=== PATIENT | female | born 1955 | race Caucasian/White ===

== ENCOUNTER 2016-10-23 19:56 | Emergency (ER) | payer MEDICAID ==
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
--- NOTE | 2016-10-24 07:53 | CT ---
DATE OF SERVICE: 10/23/16 CLINICAL DATA: fall, hit head UNENHANCED BRAIN CT: Multislice acquisition through the brain without IV contrast was performed. There is mild diffuse cerebral atrophy. No masses or mass effect. No intracranial hemorrhage. No evidence of acute or subacute infarct. No osseous abnormalities. There is minimal mucosal thickening in the ethmoid sinuses consistent with chronic sinusitis. IMPRESSION: No acute intracranial abnormalities. [id number] [facility]
== END 2016-10-23 23:30 ==
LOC: LB.ED 19:56
DX: S09.90XA Unspecified injury of head, initial encounter (principal); W19.XXXA Unspecified fall, initial encounter; F10.129 Alcohol abuse with intoxication, unspecified; F91.9 Conduct disorder, unspecified; Z63.4 Disappearance and death of family member
CPT/HCPCS: 36415; 70450; 80048; 84450; 84460; 84484; 85025; 99285; A0425; A0429; G0480; 99284

== ENCOUNTER 2017-06-21 16:28 | Emergency (ER) | payer MEDICAID ==
[2017-06-21] MEDS ORDERED: LORazepam 2 MG/ML SDV IVPUSH ONE ×2 (17:01→19:07)
--- NOTE | 2017-06-21 17:06 | EDM.PDOC ---
ED HPI GENERAL MEDICAL PROBLEM - General Chief Complaint: General Stated Complaint: Alcohol Withdrawal Time Seen by Provider: 06/21/17 16:45 Source of Information: Reports: Patient History Limitations: Reports: No Limitations - History of Present Illness INITIAL COMMENTS - FREE TEXT/NARRATIVE: According to patient she claims that she has been drinking 1/2 bottle of Vodka everyday. Today she did not have any Vodka to drink. She feels anxious and not well. She claims she has been shaky and hence came into emergency room. No nausea, vomiting or abdominal pain. No fever or chills. She claims she is tired of drinking now and wants to quit and wants to go to detox center and come home clean this time. I did call [facility] and discuss patient with triage nurse. Pt has been considered for inpatient admission under Alma Rosa Iverson NP at [facility]. Pt has not family member that can take her down and hence [facility] ambulance was arranged for transfer.Pt is hemodynamically stable at the time of transfer. Onset: Today Onset Date: 06/21/17 Onset Time: 12:00 Severity: Mild Improves with: Reports: None Worsens with: Reports: None Associated Symptoms: Reports: Nausea/Vomiting. Denies: Confusion, Chest Pain, Cough, Diaphoresis, Fever/Chills, Headaches, Malaise, Rash, Seizure, Shortness of Breath, Syncope, Weakness - Related Data Allergies Allergy/AdvReac Type Severity Reaction Status Date / Time No Known Allergies Allergy Verified 10/23/16 20:10 Home Meds: Home Meds NK [No Known Home Meds] 10/23/16 [History] Past Medical History Psychiatric History: Reports: Other (See Below) Other Psychiatric History: Per family patient is a "binge drinker " unknown how often she drinks but has been drinking for the last three days and had a traveller size bottle of vodka today". - Past Surgical History Musculoskeletal Surgical History: Reports: Other (See Below) Other Musculoskeletal Surgeries/Procedures:: Hip fracture 2-3 years ago left hip per pt uses cane at home Social & Family History - Family History Family Medical History: Noncontributory Respiratory: Reports: None - Tobacco Use Smoking Status *Q: Current Every Day Smoker Years of Tobacco use: 50 Packs/Tins Daily: 1 Used Tobacco, but Quit: No Second Hand Smoke Exposure: No - Caffeine Use Caffeine Use: Reports: Coffee, Soda Other Caffeine Use: 2- 3 cups a day - Alcohol Use Days Per Week of Alcohol Use: 4 Number of Drinks Per Day: 4 Total Drinks Per Week: 16 - Recreational Drug Use Recreational Drug Use: No ED ROS GENERAL - Review of Systems Review Of Systems: See Below Constitutional: Denies: Fever, Chills HEENT: Denies: Nose Pain, Sinus Problem, Throat Pain, Throat Swelling Respiratory: Denies: Shortness of Breath, Wheezing, Cough, Sputum Cardiovascular: Denies: Chest Pain, Lightheadedness Endocrine: Denies: Fatigue, High Glucose GI/Abdominal: Reports: Nausea, Vomiting. Denies: Abdominal Pain, Bloody Stool, Constipation, Diarrhea, Hematemesis, Hematochezia : Denies: Urgency, Urinary Retention Musculoskeletal: Denies: Joint Pain, Joint Swelling Skin: Denies: Pruritis, Rash, Erythema Neurological: Reports: Tremors. Denies: Confusion, Dizziness, Headache, Numbness, Tingling, Weakness ED EXAM, GENERAL - Physical Exam Exam: See Below Exam Limited By: No Limitations General Appearance: Alert, WD/WN, No Apparent Distress, Cachetic, Other (poor general hygiene and thin built) Eye Exam: Bilateral Eye: EOMI, PERRL Ears: Normal External Exam, Normal Canal, Hearing Grossly Normal, Normal TMs Ear Exam: Bilateral Ear: Auricle Normal, Canal Normal, TM normal Nose: Normal Inspection, Normal Mucosa, No Blood Throat/Mouth: Normal Inspection, Normal Lips, Normal Teeth, Normal Gums, Normal Oropharynx, Normal Voice, No Airway Compromise Head: Atraumatic, Normocephalic Neck: Normal Inspection, Supple, Non-Tender, Full Range of Motion Respiratory/Chest: No Respiratory Distress, Lungs Clear, Normal Breath Sounds, No Accessory Muscle Use, Chest Non-Tender Cardiovascular: Normal Peripheral Pulses, Regular Rate, Rhythm, No Edema, No Gallop, No JVD, No Murmur, No Rub Peripheral Pulses: 2+: Brachial (L), Brachial (R), Radial (L), Radial (R) GI/Abdominal: Normal Bowel Sounds, Soft, Non-Tender, No Organomegaly, No Distention, No Abnormal Bruit, No Mass Back Exam: Normal Inspection, Full Range of Motion, NT Extremities: Normal Inspection, Normal Range of Motion, Non-Tender, Normal Capillary Refill, No Pedal Edema Neurological: Alert, Oriented, CN II-XII Intact, Normal Cognition, Normal Gait, Other (Has coarse tremor of the hands. No clonus seen or felt.) Skin Exam: Warm, Intact EKG INTERPRETATION EKG Date: 06/21/17 Rhythm: NSR [place]ison: Normal P-Wave: Present QRS: Normal ST-T: Normal QT: Normal EKG Interpretation Comments: Sinus tachycardia Course - Vital Signs Text/Narrative:: Pt apparently drank 3 Pints of Vodka last night.She has not had any alcohol today and she has been having withdrawal tremors.Pt did receive Ativan 1 mg after Iv was placed. She claims she feels better. Pt's EKG is in sinus tachycardia. CBC, CMP and ETOH level drawn.CBC and CMP normal. Her ETOH level is 97. Pt reassured. Pt does not want to go home. she claims she does not want to go back home. She wants to go into inpatient detox program and needs help with quitting her alcoholism. she claims she lives alone and lot of time drinks from boredom. - Orders/Labs/Meds Orders: Active Orders 24 hr Category Date Time Status EKG Documentation Completion [RC] ASDIRECTED Care 06/21/17 17:21 Active Labs: Laboratory Tests 06/21/17 06/21/17 06/21/17 Range/Units 17:15 17:15 17:15 WBC 9.7 (4.0-11.0) K/uL RBC 4.02 (3.80-5.80) M/uL Hgb 11.8 (11.5-16.5) g/dL Hct 35.9 L (37.0-47.0) % MCV 89 (76-96) fL MCH 29.4 (27.0-32.0) pg MCHC 32.9 (31.0-35.0) g/dL RDW 14.7 (11.0-16.0) % Plt Count 370 (150-500) K/uL MPV 9.3 (6.0-10.0) fL Neut % (Auto) 68.8 (45.0-70.0) % Lymph % (Auto) 20.1 (20.0-40.0) % [place] % (Auto) 10.1 H (3.0-10.0) % Eos % (Auto) 0.6 L (1.0-5.0) % Baso % (Auto) 0.4 (0.0-0.5) % Neut # (Auto) 6.68 (2.00-7.50) K/uL Lymph # (Auto) 1.95 (1.50-4.00) K/uL [place] # (Auto) 0.98 H (0.20-0.80) K/uL Eos # (Auto) 0.06 (0.04-0.40) K/uL Baso # (Auto) 0.04 (0.02-0.10) K/uL Sodium 135 L (136-145) mmol/L Potassium 4.2 (3.5-5.1) mmol/L Chloride 96 L (98-107) mmol/L Carbon Dioxide 24.3 (21.0-32.0) mmol/L Anion Gap 18.9 H (5.0-15.0) mmol/L BUN 11 D (8-26) mg/dL Creatinine 0.56 (0.55-1.02) mg/dL Est Cr Clr Drug Dosing TNP Estimated GFR (MDRD) > 60 (>60) MLS/MIN BUN/Creatinine Ratio 19.6 (6-25) Glucose 109 H (74-100) mg/dL Calcium 7.9 L (8.5-10.1) mg/dL Phosphorus 2.7 (2.5-4.9) mg/dL Magnesium 0.9 L (1.8-2.4) mg/dL Total Bilirubin 0.4 (0.0-1.0) mg/dL AST 27 (15-37) U/L ALT 18 (12-78) U/L Alkaline Phosphatase 162 H (46-116) U/L Total Protein 6.0 L (6.4-8.2) g/dL Albumin 2.3 L (3.4-5.0) g/dL Globulin 3.7 (2.2-4.2) g/dL Albumin/Globulin Ratio 0.6 L (0.8-2.0) Ethyl Alcohol 97.0 H (0.0-0.0) mg/dL Meds: Medications Discontinued Medications Generic Name Dose Route Start Last Admin Trade Name Freq PRN Reason Stop Dose Admin Lorazepam 1 mg 06/21/17 17:01 Ativan IVPUSH 06/21/17 17:02 ONETIME ONE Departure - Departure Time of Disposition: 19:55 Disposition: DC/Tfer to Psych Hosp/Unit 65 Condition: Fair Clinical Impression: Chronic alcoholism - Discharge Information Referrals: PCP,None [Primary Care Provider] - Forms: ED Department Discharge - Problem List & Annotations (1) Chronic alcoholism SNOMED Code(s): 3974440 Code(s): F10.20 - ALCOHOL DEPENDENCE, UNCOMPLICATED Status: Acute Current Visit: No - Problem List Review Problem List Initiated/Reviewed/Updated: Yes - My Orders Last 24 Hours: My Active Orders 06/21/17 17:21 EKG Documentation Completion [RC] ASDIRECTED - Assessment/Plan Admission H&P: Please use this note as an admission H&P Last 24 Hours: My Active Orders 06/21/17 17:21 EKG Documentation Completion [RC] ASDIRECTED Assessment:: Chronic alcoholism Plan: According to patient she claims that she has been drinking 1/2 bottle of Vodka everyday. Today she did not have any Vodka to drink. She feels anxious and not well. She claims she has been shaky and hence came into emergency room. No nausea, vomiting or abdominal pain. No fever or chills. She claims she is tired of drinking now and wants to quit and wants to go to detox center and come home clean this time. I did call [facility] and discuss patient with triage nurse. Pt has been considered for inpatient admission under Alma Rosa Iverson NP at [facility]. Pt has not family member that can take her down and hence [facility] ambulance was arranged for transfer.Pt is hemodynamically stable at the time of transfer.
== END 2017-06-21 20:20 ==
LOC: LB.ED 16:28
DX: F10.239 Alcohol dependence with withdrawal, unspecified (principal); F17.210 Nicotine dependence, cigarettes, uncomplicated
CPT/HCPCS: 36415; 80053; 83735; 84100; 85025; 93005; 96374; 96376; 99285; A0425; A0429; G0480

== ENCOUNTER 2017-10-01 16:55 | Observation (INO) | payer MEDICAID ==
[2017-10-01] MEDS ORDERED: MVI, Adult with Vitamin K 10 ML, Thiamine 100 MG, Folic Acid 1 MG, Magnesium Sulfate 3 ... IV SCH ×5 (17:30)
[2017-10-01] MEDS ORDERED: FOLIC ACID IV ONE ×5 (19:30)
[2017-10-01] MEDS ORDERED: [UNRECOGNIZED DRUG - OTHER] IV ONE ×5 (19:30)
[2017-10-01] MEDS ORDERED: MVI IV ONE ×5 (19:30)
[2017-10-01] MEDS ORDERED: THIAMINE IV ONE ×5 (19:30)
[2017-10-01] MEDS ORDERED: VITAMIN K IV ONE ×5 (19:30)
[2017-10-01] MEDS ORDERED: LORazepam 2 MG/ML SDV IVPUSH PRN (19:30)
[2017-10-01] MEDS ORDERED: Sodium Chloride 0.9% 1,000 ML IV SCH (19:45)
[2017-10-01] MEDS ORDERED: LORazepam 2 MG/ML SDV IVPUSH ONE (20:00)
[2017-10-01] MEDS ORDERED: LORazepam 2 MG/ML SDV ONE (20:23)
[2017-10-02] MEDS: Nicotine 14 MG/24 Hr Patch TRDERM SCH ×2 (00:04→09:59)
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
--- NOTE | 2017-10-02 01:47 | ADMIT ---
DATE OF SERVICE: 10/01/2017 HISTORY OF PRESENT ILLNESS: This is a 62-year-old lady I saw earlier in the emergency room for alcohol intoxication. Her other lab results were normal or negative. The patient left AMA after being in the emergency room for about 1 hour. She still had an IV site that was intact. Nursing staff called the painter hand who went to check on the patient and to remove the IV site, and they found her at home. She had walked home using a walker, but she was somewhat drowsy, and they thought she should come in for further evaluation. The patient is taken directly to the hospital floor. She will be admitted for observation overnight. When I saw the patient at this point, she was sleeping quietly, respirations were unlabored , and her son is here with her. TREATMENT PLAN: We will keep the patient here overnight. She will be rehydrated. We will give her a banana bag as well, and we will also use a Habitrol nicotine patch if needed. The patient also may need some Ativan and this will be done per protocol. Again, her other lab results were all negative or normal. There are no other health issues with the patient other than some malnourishment and poor hygiene. CRS/MODL /[id number] SABINA
--- NOTE | 2017-10-02 09:56 | CR ---
AP CHEST, 10/01/17 The heart size is normal. The aorta is ectatic The left costophrenic angle is cut off. The visualized lungs are clear. No pneumothorax. No pleural effusions. [id number] [facility]
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
[2017-10-02] MEDS ORDERED: LORazepam 1 MG Tab ONE (14:16)
[2017-10-02] MEDS ORDERED: LORazepam 1 MG Tab PO PRN (14:21)
--- NOTE | 2017-10-02 17:06 | CR ---
DATE OF SERVICE: 10/02/17 CLINICAL DATA: right hip pain RIGHT HIP: No priors. There is diffuse osteopenia. There are mild osteoarthritic changes of the right hip joint. There are degenerative changes involving the right SI joint. No acute abnormalities. [id number] [facility]
[2017-10-03] MEDS: Nicotine 14 MG/24 Hr Patch TRDERM SCH (09:28)
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
== END 2017-10-03 11:35 | disposition home or self-care (01) ==
LOC: LB.ED 16:55 → LB.MS 19:25
PROVIDERS: ADMIT Physician Assistant; ATTEND Physician Assistant
DX: F10.120 Alcohol abuse with intoxication, uncomplicated (principal); R46.89 Other symptoms and signs involving appearance and behavior; Z53.21 Procedure and treatment not carried out due to patient leaving prior to being seen by health care provider; Y90.8 Blood alcohol level of 240 mg/100 ml or more
CPT/HCPCS: 36415; 71045; 73502; 80053; 80307; 84443; 85025; 99285; A0425; A0429; A9270; G0480; J2060; J3411; J3475; J7030; J3490

== ENCOUNTER 2017-10-11 18:27 | Inpatient (IN) | payer SELFPAY ==
[2017-10-11] MEDS ORDERED: Potassium Chloride 20 MEQ Tab.ER PO ONE (19:45)
[2017-10-11] MEDS ORDERED: Thiamine 100 MG in Sodium Chloride 0.9% 100 ML IV ONE (20:24)
[2017-10-11] MEDS ORDERED: NS + KCl 20mEq/L 1,000 ML IV SCH (20:30)
[2017-10-11] MEDS: LORazepam 2 MG/ML SDV IVPUSH PRN (20:45)
[2017-10-11] MEDS ORDERED: cefTRIAXone 1 GM in Sodium Chloride 0.9% 50 ML IV SCH (21:00)
[2017-10-12] MEDS: LORazepam 2 MG/ML SDV IVPUSH PRN (00:50)
[2017-10-12] MEDS: Nicotine 21 MG/24 Hr Patch TRDERM SCH ×2 (04:40→07:22)
[2017-10-12] MEDS: Potassium Chloride 20 MEQ Tab.ER PO SCH (07:40)
--- NOTE | 2017-10-12 11:55 | PCM.PN ---
- General Info Date of Service: 10/12/17 Admission Dx/Problem (Free Text): alcohol intoxication hypokalemia UTI Functional Status: Reports: Tolerating Diet - Patient Data Vitals - Most Recent: Last Vital Signs Temp 98.1 F 10/12/17 10:45 Pulse 93 10/12/17 10:45 Resp 18 10/12/17 10:45 BP 134/79 10/12/17 10:45 Pulse Ox 100 10/12/17 10:45 Weight - Most Recent: 98 lb 6.4 oz I&O - Last 24 Hours: Intake & Output 10/11/17 10/12/17 10/12/17 22:59 06:59 14:59 Intake Total 950 Balance 950 Lab Results Last 24 Hours: Laboratory Results - last 24 hr 10/11/17 10/11/17 10/11/17 Range/Units 18:55 18:55 18:55 WBC 12.0 H (4.0-11.0) K/uL RBC 3.52 L (3.80-5.80) M/uL Hgb 10.7 L (11.5-16.5) g/dL Hct 31.5 L (37.0-47.0) % MCV 90 (76-96) fL MCH 30.4 (27.0-32.0) pg MCHC 34.0 (31.0-35.0) g/dL RDW 13.9 (11.0-16.0) % Plt Count 330 D (150-500) K/uL MPV 9.8 (6.0-10.0) fL Neut % (Auto) 61.2 (45.0-70.0) % Lymph % (Auto) 31.1 (20.0-40.0) % [place] % (Auto) 4.7 (3.0-10.0) % Eos % (Auto) 2.5 (1.0-5.0) % Baso % (Auto) 0.5 (0.0-0.5) % Neut # (Auto) 7.35 (2.00-7.50) K/uL Lymph # (Auto) 3.73 (1.50-4.00) K/uL [place] # (Auto) 0.56 (0.20-0.80) K/uL Eos # (Auto) 0.30 (0.04-0.40) K/uL Baso # (Auto) 0.06 (0.02-0.10) K/uL PT 9.9 (9.0-11.5) sec INR 1.0 (1.0-3.5) Sodium 135 L (136-145) mmol/L Potassium 2.7 L* D (3.5-5.1) mmol/L Chloride 97 L (98-107) mmol/L Carbon Dioxide 26.3 (21.0-32.0) mmol/L Anion Gap 14.4 (5.0-15.0) mmol/L BUN 7 L (8-26) mg/dL Creatinine 0.53 L (0.55-1.02) mg/dL Est Cr Clr Drug Dosing TNP Estimated GFR (MDRD) > 60 (>60) MLS/MIN BUN/Creatinine Ratio 13.2 (6-25) Glucose 96 (74-100) mg/dL Calcium 8.0 L (8.5-10.1) mg/dL Total Bilirubin 0.4 (0.0-1.0) mg/dL AST 22 (15-37) U/L ALT 24 (12-78) U/L Alkaline Phosphatase 173 H (46-116) U/L Total Protein 6.2 L (6.4-8.2) g/dL Albumin 2.9 L (3.4-5.0) g/dL Globulin 3.3 (2.2-4.2) g/dL Albumin/Globulin Ratio 0.9 (0.8-2.0) Urine Color Urine Appearance (CLEAR) Urine pH (5.0-8.0) Ur Specific [place] (1.003-1.030) Urine Protein (NEGATIVE) mg/dL Urine Glucose (UA) (NEGATIVE) mg/dL Urine Ketones (NEGATIVE) mg/dL Urine Occult Blood (NEGATIVE) Urine Nitrite (NEGATIVE) Urine Bilirubin (NEGATIVE) Urine Urobilinogen (0.2-1.0) E.U./dL Ur Leukocyte Esterase (NEGATIVE) Urine RBC /HPF Urine WBC /HPF Urine WBC Clumps /HPF Ur Squamous Epith Cells /HPF Urine Bacteria /HPF Urine Opiates Screen (NEGATIVE) Ur Oxycodone Screen (NEGATIVE) Ur Barbiturates Screen (NEGATIVE) Ur Amphetamine Screen (NEGATIVE) U Methamphetamines Scrn (NEGATIVE) U Benzodiazepines Scrn (NEGATIVE) U Cocaine Metab Screen (NEGATIVE) U Marijuana (THC) Screen (NEGATIVE) Ethyl Alcohol 356.0 H* (0.0-0.0) mg/dL 10/11/17 10/11/17 10/12/17 Range/Units 19:07 19:07 08:00 WBC (4.0-11.0) K/uL RBC (3.80-5.80) M/uL Hgb (11.5-16.5) g/dL Hct (37.0-47.0) % MCV (76-96) fL MCH (27.0-32.0) pg MCHC (31.0-35.0) g/dL RDW (11.0-16.0) % Plt Count (150-500) K/uL MPV (6.0-10.0) fL Neut % (Auto) (45.0-70.0) % Lymph % (Auto) (20.0-40.0) % [place] % (Auto) (3.0-10.0) % Eos % (Auto) (1.0-5.0) % Baso % (Auto) (0.0-0.5) % Neut # (Auto) (2.00-7.50) K/uL Lymph # (Auto) (1.50-4.00) K/uL [place] # (Auto) (0.20-0.80) K/uL Eos # (Auto) (0.04-0.40) K/uL Baso # (Auto) (0.02-0.10) K/uL PT (9.0-11.5) sec INR (1.0-3.5) Sodium 139 (136-145) mmol/L Potassium 4.2 D (3.5-5.1) mmol/L Chloride 103 (98-107) mmol/L Carbon Dioxide 29.0 (21.0-32.0) mmol/L Anion Gap 11.2 (5.0-15.0) mmol/L BUN 7 L (8-26) mg/dL Creatinine 0.53 L (0.55-1.02) mg/dL Est Cr Clr Drug Dosing TNP Estimated GFR (MDRD) > 60 (>60) MLS/MIN BUN/Creatinine Ratio 13.2 (6-25) Glucose 104 H (74-100) mg/dL Calcium 8.2 L (8.5-10.1) mg/dL Total Bilirubin (0.0-1.0) mg/dL AST (15-37) U/L ALT (12-78) U/L Alkaline Phosphatase (46-116) U/L Total Protein (6.4-8.2) g/dL Albumin (3.4-5.0) g/dL Globulin (2.2-4.2) g/dL Albumin/Globulin Ratio (0.8-2.0) Urine Color Yellow Urine Appearance Slightly cloudy (CLEAR) Urine pH 6.0 (5.0-8.0) Ur Specific [place] 1.015 (1.003-1.030) Urine Protein Negative (NEGATIVE) mg/dL Urine Glucose (UA) Negative (NEGATIVE) mg/dL Urine Ketones Negative (NEGATIVE) mg/dL Urine Occult Blood Trace-lysed H (NEGATIVE) Urine Nitrite Positive H (NEGATIVE) Urine Bilirubin Negative (NEGATIVE) Urine Urobilinogen 0.2 (0.2-1.0) E.U./dL Ur Leukocyte Esterase Trace H (NEGATIVE) Urine RBC 5-10 H /HPF Urine WBC 20-30 H /HPF Urine WBC Clumps Few /HPF Ur Squamous Epith Cells Few /HPF Urine Bacteria Many H /HPF Urine Opiates Screen Negative (NEGATIVE) Ur Oxycodone Screen Negative (NEGATIVE) Ur Barbiturates Screen Negative (NEGATIVE) Ur Amphetamine Screen Negative (NEGATIVE) U Methamphetamines Scrn Negative (NEGATIVE) U Benzodiazepines Scrn Negative (NEGATIVE) U Cocaine Metab Screen Negative (NEGATIVE) U Marijuana (THC) Screen Negative (NEGATIVE) Ethyl Alcohol 0.0 (0.0-0.0) mg/dL Med Orders - Current: Current Medications Ceftriaxone Sodium 1 gm/ (Sodium Chloride) 50 mls @ 100 mls/hr IV Q24H [facility] Last Admin: 10/11/17 20:20 Dose: 100 mls/hr Potassium Chloride/Sodium Chloride (Normal Saline With 20 Meq Kcl) 1,000 mls @ 200 mls/hr IV ASDIRECTED [facility] Last Admin: 10/11/17 20:00 Dose: 200 mls/hr Lorazepam (Ativan) 1 mg IVPUSH Q4H PRN PRN Reason: Agitation Last Admin: 10/12/17 00:50 Dose: 1 mg Nicotine (Habitrol) 21 mg TRDERM DAILY [facility] Last Admin: 10/12/17 07:22 Dose: Not Given Potassium Chloride (Klor-Con M20) 20 meq PO DAILY [facility] Last Admin: 10/12/17 07:40 Dose: 20 meq Thiamine HCl (Vitamin B-1) 100 mg PO BEDTIME [facility] Discontinued Medications Thiamine HCl 100 mg/ Sodium (Chloride) 101 mls @ 202 mls/hr IV ONETIME ONE Stop: 10/11/17 20:25 Last Admin: 10/11/17 20:30 Dose: 202 mls/hr Potassium Chloride (Klor-Con M20) 40 meq PO ONETIME ONE Stop: 10/11/17 19:46 Last Admin: 10/11/17 19:52 Dose: 40 meq - Exam General: Alert, Oriented Neck: Supple Lungs: Clear to Auscultation, Normal Respiratory Effort Cardiovascular: Regular Rate, Regular Rhythm - Problem List Review Problem List Initiated/Reviewed/Updated: Yes - My Orders Last 24 Hours: My Active Orders 10/11/17 19:07 DRUG SCREEN, URINE [URCHEM] Stat UA W/MICROSCOPIC [URIN] Stat 10/11/17 20:05 Patient Status [ADT] Routine Oxygen Therapy [RC] PRN Up With Assistance [RC] ASDIRECTED Vital Signs [RC] Q4H Resuscitation Status Routine 10/11/17 20:15 Nicotine [Habitrol] 21 mg TRDERM DAILY 10/11/17 20:17 LORazepam [Ativan] 1 mg IVPUSH Q4H PRN 10/11/17 20:30 NS + KCl 20mEq/L [Normal Saline with 20 mEq KCl] 1,000 ml IV ASDIRECTED 10/11/17 21:00 cefTRIAXone [Rocephin] 1 gm Sodium Chloride 0.9% [Normal Saline] 50 ml IV Q24H 10/12/17 07:59 CULTURE MRSA SURVEY [RM] Routine 10/12/17 08:00 Potassium Chloride [Klor-Con M20] 20 meq PO DAILY 10/12/17 20:00 Thiamine [Vitamin B-1] 100 mg PO BEDTIME 10/12/17 Breakfast Regular Diet [DIET] 10/13/17 05:11 BASIC METABOLIC PANEL,BMP [CHEM] AM Blood Alcohol [ETHANOL BLOOD MEDICAL] [CHEM] AM 10/14/17 05:11 BASIC METABOLIC PANEL,BMP [CHEM] AM Blood Alcohol [ETHANOL BLOOD MEDICAL] [CHEM] AM - Assessment Assessment:: Alcohol level is down to zero. Pt' potassium is 4.2 now in the normal range. UTI has beed treated - Plan Plan:: Will attempt to find inpatient alcohol treatment as pt states that is her goal.
[2017-10-12] MEDS ORDERED: LORazepam 1 MG Tab ONE (14:23)
[2017-10-12] MEDS: LORazepam 1 MG Tab PO PRN ×2 (14:30→19:14)
[2017-10-12] MEDS ORDERED: Ondansetron 4 MG Tab.DIS PO PRN (18:08)
[2017-10-12] MEDS ORDERED: Thiamine 100 MG Tab PO SCH (20:00)
[2017-10-13] MEDS: LORazepam 1 MG Tab PO PRN (03:55)
[2017-10-13] MEDS: Potassium Chloride 20 MEQ Tab.ER PO SCH (07:58)
[2017-10-13] MEDS: Nicotine 21 MG/24 Hr Patch TRDERM SCH (07:58)
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
== END 2017-10-13 11:58 | disposition home or self-care (01) | DRG 641 ==
LOC: LB.ED 18:27 → LB.MS 20:00 → OBSVTOIN 20:05
PROVIDERS: ADMIT Family Medicine; ATTEND Family Medicine
DX: E87.6 Hypokalemia (principal); N39.0 Urinary tract infection, site not specified; F10.129 Alcohol abuse with intoxication, unspecified
CPT/HCPCS: 36415; 80048; 80053; 80307; 81001; 85025; 85610; 99284; A9270-GY; G0480; J0696; J2060; J3411; J3480; J7030; J7050

== ENCOUNTER 2017-10-13 19:12 | Emergency (ER) | payer SELFPAY ==
[2017-10-13] MEDS ORDERED: LORazepam 1 MG Tab ONE (19:30)
--- NOTE | 2017-10-14 01:26 | ER ---
HPI: A 62-year-old lady who comes in with her son with complaints of feeling nervous and jittery. She feels a little lightheaded at times. She just was discharged from the hospital today at noon. She was here as an inpatient for a couple of days for fatigue and hypokalemia as well as chronic alcoholism. The patient tells me that plans are being made so that she can go into a detox program. She has meetings coming up in a couple of days to determine this. She is worried that she may have a seizure. She states that she does have some history of seizures, but has not had one for at least 2 years. She is wondering about getting on Dilantin to help with the risk of seizures. The patient states she feels a little shaky at times, but she has not been nauseated. She has not been vomiting. She has not had any recent falls. OBJECTIVE: GENERAL APPEARANCE: The patient is awake and alert. She is in good hygiene tonight. She is pleasant and fairly talkative. VITAL SIGNS: Reviewed as listed. Physical exam, ears; TMs are dull, otherwise normal. Nares are patent. Oral mucous membranes moist. Tonsils not enlarged or injected. Pharynx not inflamed. The patient is missing multiple teeth. LUNGS: Clear. CARDIAC: Heart sounds distinct. S1, S2 present. Regular rate. No murmurs. ABDOMEN: Soft, nontender. Bowel sounds are present. SKIN: Warm and dry. DIAGNOSES: 1. Alcohol withdrawal. 2. Chronic alcoholism. 3. Hypokalemia. TREATMENT PLAN: I will give the patient Ativan tablets. I understand she has been on these before and it worked well for her in the past. We will try Ativan 1 mg. She can take one tablet every 6 hours as needed. We gave 3 tablets from the ER and a script for 12 more tablets. I advised the patient to use these regularly if she feels she needs them for the next couple of days and then she will be following up with her primary care provider and a certified social workers in health care. I advised the patient to consult with her primary care provider to see if Dilantin should be restarted. She has not been on it for a while and she has not had any recent seizure activity. The patient is agreeable with the treatment plan. Her son is here as well. He has no further questions. CRS/MODL /[id number] SABINA
== END 2017-10-13 19:35 | disposition home or self-care (01) ==
LOC: LB.ED 19:12
DX: F10.239 Alcohol dependence with withdrawal, unspecified (principal); E87.6 Hypokalemia
CPT/HCPCS: 99283; A9270-GY

== ENCOUNTER 2017-10-18 19:18 | Emergency (ER) | payer SELFPAY ==
--- NOTE | 2017-10-18 19:42 | EDM.PDOC ---
ED HPI GENERAL MEDICAL PROBLEM - General Chief Complaint: General Stated Complaint: ETOH intoxification family requesting Tx Time Seen by Provider: 10/18/17 19:35 Source of Information: Reports: Patient, Family History Limitations: Reports: Intoxication - History of Present Illness INITIAL COMMENTS - FREE TEXT/NARRATIVE: Patient is a 62 year old alcoholic female who has been in treatment before who has become intoxicated again. Her son called the police and the police stated that she needed to go to Detox and suggested she come to the ED to go to Detox. She is intoxicated but otherwise has no complaints. Onset: Gradual Onset Date: 10/16/17 Onset Time: 12:00 Duration: Day(s): (She has been drinking solidly for 3 days and has not eaten anything else.) Location: Reports: Generalized Quality: Reports: Same as Previous Episode Severity: Moderate Improves with: Reports: None Worsens with: Reports: None Context: Reports: Other (Alcoholic) Associated Symptoms: Reports: No Other Symptoms (She is obviously drunk.) - Related Data Allergies Allergy/AdvReac Type Severity Reaction Status Date / Time No Known Allergies Allergy Verified 10/13/17 21:52 Home Meds: Home Meds Potassium Chloride [K-Tab ER] 20 meq PO DAILY #30 tablet.er 10/13/17 [Rx] PARoxetine HCl [Paxil] 40 mg PO DAILY 10/18/17 [History] Past Medical History HEENT History: Reports: Hard of Hearing, Impaired Vision Genitourinary History: Reports: Urinary Incontinence [employer] History: Reports: Musculoskeletal History: Reports: Fracture, Other (See Below) Other Musculoskeletal History: Hip/Pelvic Fx in May per pt; ambulates with use of FWW Neurological History: Reports: Other (See Below) Other Neuro History: withdrawl seizures Psychiatric History: Reports: Addiction, Anxiety, Depression, Panic Attack, Other (See Below) Other Psychiatric History: ETOH abuse Hx. Has been seen in facility multiple times in past months for ETOH intoxication and withdrawals. Has been to detox numerous times as well recently. - Past Surgical History Musculoskeletal Surgical History: Reports: Other (See Below) Other Musculoskeletal Surgeries/Procedures:: Hip fracture 2-3 years ago left hip per pt uses cane at home Social & Family History - Family History Family Medical History: Noncontributory Respiratory: Reports: None - Caffeine Use Caffeine Use: Reports: Coffee, Soda Other Caffeine Use: 2- 3 cups a day ED ROS GENERAL - Review of Systems Review Of Systems: See Below Constitutional: Reports: Other (She is intoxicated.) HEENT: Reports: No Symptoms Respiratory: Reports: No Symptoms Cardiovascular: Reports: No Symptoms Endocrine: Reports: No Symptoms GI/Abdominal: Reports: No Symptoms : Reports: No Symptoms Musculoskeletal: Reports: No Symptoms Skin: Reports: No Symptoms Neurological: Reports: Other (Intoxicated) Psychiatric: Reports: Other (Intoxicated) Hematologic/Lymphatic: Reports: No Symptoms Immunologic: Reports: No Symptoms ED EXAM, GENERAL - Physical Exam Exam: See Below Exam Limited By: No Limitations General Appearance: Alert, WD/WN, No Apparent Distress Eye Exam: Bilateral Eye: EOMI, Normal Fundi, Normal Inspection, PERRL Ears: Normal External Exam, Normal Canal, Hearing Grossly Normal, Normal TMs Ear Exam: Bilateral Ear: Auricle Normal, Canal Normal, TM normal Nose: Normal Inspection, Normal Mucosa, No Blood Throat/Mouth: Normal Inspection, Normal Lips, Normal Teeth, Normal Gums, Normal Oropharynx, Normal Voice, No Airway Compromise Head: Atraumatic, Normocephalic Neck: Normal Inspection, Supple, Non-Tender, Full Range of Motion Respiratory/Chest: No Respiratory Distress, Lungs Clear, Normal Breath Sounds, No Accessory Muscle Use, Chest Non-Tender Cardiovascular: Normal Peripheral Pulses, Regular Rate, Rhythm, No Edema, No Gallop, No JVD, No Murmur, No Rub GI/Abdominal: Normal Bowel Sounds, Soft, Non-Tender, No Organomegaly, No Distention, No Abnormal Bruit, No Mass Back Exam: Normal Inspection, Full Range of Motion, NT Extremities: Normal Inspection, Normal Range of Motion, Non-Tender, Normal Capillary Refill, No Pedal Edema Neurological: Alert, Oriented, CN II-XII Intact, Normal Cognition, Normal Gait, Normal Reflexes, No Motor/Sensory Deficits Psychiatric: Normal Affect, Normal Mood Skin Exam: Warm, Dry, Intact, Normal Color, No Rash Lymphatic: No Adenopathy Course - Vital Signs Text/Narrative:: Uneventful ED course. She was given 1 liter of Normal Saline and her ETOH level came back low enough to be accepted to Detox. [facility] has accepted her in transfer and the [employer] ambulance will take her there. Last Recorded V/S: Last Vital Signs Temp 36.9 C 10/18/17 20:02 Pulse 94 10/18/17 20:02 Resp 16 10/18/17 20:02 BP 117/80 10/18/17 20:02 Pulse Ox 94 L 10/18/17 20:02 - Orders/Labs/Meds Orders: Active Orders 24 hr Category Date Time Status DRUG SCREEN, URINE [URCHEM] Stat Lab 10/18/17 20:43 Ordered Sodium Chloride 0.9% [Normal Saline] 1,000 ml Med 10/18/17 19:45 Active IV ASDIRECTED Sodium Chloride 0.9% [Saline Flush] Med 10/18/17 19:44 Active 10 ml FLUSH ASDIRECTED PRN Saline Lock Insert [OM.PC] Routine Oth 10/18/17 19:44 Ordered Medication Orders Sodium Chloride (Normal Saline) 1,000 mls @ 1,000 mls/hr IV ASDIRECTED MEAGHAN Last Admin: 10/18/17 19:54 Dose: 1,000 mls/hr Sodium Chloride (Saline Flush) 10 ml FLUSH ASDIRECTED PRN PRN Reason: Keep Vein Open Labs: Laboratory Tests 10/18/17 10/18/17 10/18/17 Range/Units 20:30 20:30 20:30 WBC 10.9 (4.0-11.0) K/uL RBC 3.63 L (3.80-5.80) M/uL Hgb 11.2 L (11.5-16.5) g/dL Hct 33.1 L (37.0-47.0) % MCV 91 (76-96) fL MCH 30.9 (27.0-32.0) pg MCHC 33.8 (31.0-35.0) g/dL RDW 14.3 (11.0-16.0) % Plt Count 390 (150-500) K/uL MPV 9.2 (6.0-10.0) fL Neut % (Auto) 57.5 (45.0-70.0) % Lymph % (Auto) 34.4 (20.0-40.0) % [place] % (Auto) 6.6 (3.0-10.0) % Eos % (Auto) 0.9 L (1.0-5.0) % Baso % (Auto) 0.6 H (0.0-0.5) % Neut # (Auto) 6.27 (2.00-7.50) K/uL Lymph # (Auto) 3.75 (1.50-4.00) K/uL [place] # (Auto) 0.72 (0.20-0.80) K/uL Eos # (Auto) 0.10 (0.04-0.40) K/uL Baso # (Auto) 0.06 (0.02-0.10) K/uL Sodium 135 L (136-145) mmol/L Potassium 3.8 (3.5-5.1) mmol/L Chloride 101 (98-107) mmol/L Carbon Dioxide 26.1 (21.0-32.0) mmol/L Anion Gap 11.7 (5.0-15.0) mmol/L BUN 7 L (8-26) mg/dL Creatinine 0.63 (0.55-1.02) mg/dL Est Cr Clr Drug Dosing TNP Estimated GFR (MDRD) > 60 (>60) MLS/MIN BUN/Creatinine Ratio 11.1 (6-25) Glucose 93 (74-100) mg/dL Calcium 8.2 L (8.5-10.1) mg/dL Total Bilirubin 0.2 D (0.0-1.0) mg/dL AST 25 (15-37) U/L ALT 20 (12-78) U/L Alkaline Phosphatase 192 H (46-116) U/L Total Protein 6.4 (6.4-8.2) g/dL Albumin 2.8 L (3.4-5.0) g/dL Globulin 3.6 (2.2-4.2) g/dL Albumin/Globulin Ratio 0.8 (0.8-2.0) TSH, Ultra Sensitive 3.234 (0.358-3.740) uIU/mL Urine Opiates Screen (NEGATIVE) Ur Oxycodone Screen (NEGATIVE) Ur Barbiturates Screen (NEGATIVE) Ur Amphetamine Screen (NEGATIVE) U Methamphetamines Scrn (NEGATIVE) U Benzodiazepines Scrn (NEGATIVE) U Cocaine Metab Screen (NEGATIVE) U Marijuana (THC) Screen (NEGATIVE) Ethyl Alcohol 336.0 H* (0.0-0.0) mg/dL 10/18/17 Range/Units 20:43 WBC (4.0-11.0) K/uL RBC (3.80-5.80) M/uL Hgb (11.5-16.5) g/dL Hct (37.0-47.0) % MCV (76-96) fL MCH (27.0-32.0) pg MCHC (31.0-35.0) g/dL RDW (11.0-16.0) % Plt Count (150-500) K/uL MPV (6.0-10.0) fL Neut % (Auto) (45.0-70.0) % Lymph % (Auto) (20.0-40.0) % [place] % (Auto) (3.0-10.0) % Eos % (Auto) (1.0-5.0) % Baso % (Auto) (0.0-0.5) % Neut # (Auto) (2.00-7.50) K/uL Lymph # (Auto) (1.50-4.00) K/uL [place] # (Auto) (0.20-0.80) K/uL Eos # (Auto) (0.04-0.40) K/uL Baso # (Auto) (0.02-0.10) K/uL Sodium (136-145) mmol/L Potassium (3.5-5.1) mmol/L Chloride (98-107) mmol/L Carbon Dioxide (21.0-32.0) mmol/L Anion Gap (5.0-15.0) mmol/L BUN (8-26) mg/dL Creatinine (0.55-1.02) mg/dL Est Cr Clr Drug Dosing Estimated GFR (MDRD) (>60) MLS/MIN BUN/Creatinine Ratio (6-25) Glucose (74-100) mg/dL Calcium (8.5-10.1) mg/dL Total Bilirubin (0.0-1.0) mg/dL AST (15-37) U/L ALT (12-78) U/L Alkaline Phosphatase (46-116) U/L Total Protein (6.4-8.2) g/dL Albumin (3.4-5.0) g/dL Globulin (2.2-4.2) g/dL Albumin/Globulin Ratio (0.8-2.0) TSH, Ultra Sensitive (0.358-3.740) uIU/mL Urine Opiates Screen Negative (NEGATIVE) Ur Oxycodone Screen Negative (NEGATIVE) Ur Barbiturates Screen Negative (NEGATIVE) Ur Amphetamine Screen Negative (NEGATIVE) U Methamphetamines Scrn Negative (NEGATIVE) U Benzodiazepines Scrn Positive H (NEGATIVE) U Cocaine Metab Screen Negative (NEGATIVE) U Marijuana (THC) Screen Negative (NEGATIVE) Ethyl Alcohol (0.0-0.0) mg/dL Meds: Medications Generic Name Dose Route Start Last Admin Trade Name Freq PRN Reason Stop Dose Admin Sodium Chloride 1,000 mls @ 1,000 mls/hr 10/18/17 19:45 10/18/17 19:54 Normal Saline IV 1,000 mls/hr ASDIRECTED MEAGHAN Administration Sodium Chloride 10 ml 10/18/17 19:44 Saline Flush FLUSH ASDIRECTED PRN Keep Vein Open Departure - Departure Time of Disposition: 22:17 Disposition: DC/Tfer to Inpt Rehab Fac 62 Condition: Fair Clinical Impression: Alcohol intoxication in active alcoholic Qualifiers: Complication of substance-induced condition: uncomplicated Qualified Code(s): F10.220 - Alcohol dependence with intoxication, uncomplicated - Discharge Information Forms: ED Department Discharge - My Orders Last 24 Hours: My Active Orders 10/18/17 19:44 Sodium Chloride 0.9% [Saline Flush] 10 ml FLUSH ASDIRECTED PRN Saline Lock Insert [OM.PC] Routine 10/18/17 19:45 Sodium Chloride 0.9% [Normal Saline] 1,000 ml IV ASDIRECTED 10/18/17 20:43 DRUG SCREEN, URINE [URCHEM] Stat - Assessment/Plan Last 24 Hours: My Active Orders 10/18/17 19:44 Sodium Chloride 0.9% [Saline Flush] 10 ml FLUSH ASDIRECTED PRN Saline Lock Insert [OM.PC] Routine 10/18/17 19:45 Sodium Chloride 0.9% [Normal Saline] 1,000 ml IV ASDIRECTED 10/18/17 20:43 DRUG SCREEN, URINE [URCHEM] Stat
[2017-10-18] MEDS ORDERED: Sodium Chloride 0.9% 10 ML Syringe FLUSH PRN (19:44)
[2017-10-18] MEDS: Sodium Chloride 0.9% 1,000 ML IV SCH (19:54)
[2017-10-18] MEDS: LORazepam 1 MG Tab PO PRN (21:48)
== END 2017-10-18 21:50 ==
LOC: LB.ED 19:18
DX: F10.129 Alcohol abuse with intoxication, unspecified (principal); Y90.8 Blood alcohol level of 240 mg/100 ml or more
CPT/HCPCS: 36415; 80053; 80307; 84443; 85025; 96360; 99283; 99284-25; A0429; A0888; A9270-GY; G0480; J7030